=== PATIENT | female | born 1945 | race Caucasian/White ===

== ENCOUNTER 2018-10-25 12:04 | Inpatient (IN) ==
[2018-10-25] MEDS ORDERED: DUONEB (A & A) INH ONE (12:27)
--- NOTE | 2018-10-25 12:40 | EKG Report ---
Test Performed on : 10/25/2018 12:14:07 PM Test Reason : CP Blood Pressure : / mmHG Vent. Rate : 060 BPM Atrial Rate : 060 BPM P-R Int : 180 ms QRS Dur : 068 ms QT Int : 386 ms P-R-T Axes : 066 036 044 degrees QTc Int : 386 ms Sinus rhythm. with premature supraventricular complexes. Low voltage QRS Borderline ECG When compared with ECG of 19-MAR-2017 12:36, premature ventricular complexes. are no longer present premature supraventricular complexes. are now present Unconfirmed Result
[2018-10-25 12:44] LABS: BASO% 0.2 % (0.0-0.8); EOS% 2.4 % (0.0-10.0); HEMATOCRIT 36.7 % (37.0-47.0); HEMOGLOBIN 12.6 g/dL (12.0-16.0); IMM GRAN% 0.8 % (0.0-0.5); LYMPH% 10.8 % (20.5-51.1); MCHC 34.3 g/dL (33-37); MCV 81.6 FL (81-99); MONO% 12.8 % (1.7-9.3); MPV 9.9 FL (7.4-10.4); PLT 271 X1000 (130-400); RDW 13.1 % (11.5-14.5); WBC 12.26 X1000 (4.8-10.8)
[2018-10-25 12:45] LABS: BASO# 0.02 X1000 (0.0-0.2); EOS# 0.29 X1000 (0.0-0.7); LYMPH# 1.32 X1000 (1.2-3.4); MONO# 1.57 X1000 (0.11-0.59); NEUT# 8.96 X1000 (1.4-6.5)
--- NOTE | 2018-10-25 12:51 | Diag Imaging Result Doc PS360 ---
EXAM: CHEST-PORTABLE INDICATION: weak TECHNIQUE: One view COMPARISON: 03/22/2017 FINDINGS: The lungs are grossly clear. There is no discrete pleural fluid collection or pneumothorax. The cardiomediastinal silhouette and central vasculature are grossly unremarkable. IMPRESSION: No evidence of acute pathology by plain radiograph. Electronically signed by Evan Tapia 10/25/2018 12:49 PM
[2018-10-25 13:11] LABS: ALB/GLOB RATIO 1.2; ALBUMIN 3.7 g/dL (3.5-5.0); CALCIUM 9.3 mg/dL (8.8-10.2); CREATININE 2.9 mg/dL (0.5-0.9); POTASSIUM 4.5 mmol/L (3.5-5.1); TOTAL BILIRUBIN 0.68 mg/dL (0.20-1.00); TOTAL PROTEIN 6.8 g/dL (6.3-8.3)
[2018-10-25] MEDS ORDERED: ZOFRAN IV PRN (14:30)
[2018-10-25] MEDS ORDERED: TYLENOL PO PRN (14:30)
[2018-10-25] MEDS ORDERED: NS 1,000 ML IV SCH (14:30)
--- NOTE | 2018-10-25 15:30 | HISTORY AND PHYSICAL ---
PRIMARY CARE PHYSICIAN: Dr. Kathi Bacon CHIEF COMPLAINT: Generalized weakness, fatigue, shortness of breath for the past week and then for the past 2 days, she has had a subjective fever, chills, nausea and vomiting. Denied any abdominal pain, diarrhea. HISTORY OF PRESENT ILLNESS: Her workup in the emergency room showed a sodium of 130, BUN of 58 with a creatinine of 2.9. Baseline creatinine appears to be around 2, so she does have some chronic kidney disease. She states her nausea has resolved since arriving to the ER. Vital signs are stable with a blood pressure on arrival of 177/91. She will be admitted for observation for further evaluation and treatment. PAST MEDICAL HISTORY: Allergic rhinitis, COPD, asthma, chronic kidney disease, hyperlipidemia, hypertension, GERD, morbid obesity, polymyalgia with a history of chronic steroid use. PAST SURGICAL HISTORY: InterStim implant to help reduce the number of urinary and bowel accidents placed in 05/2015, bilateral tubal ligation, back surgery, and a D and C. FAMILY HISTORY: Reviewed and noncontributory. SOCIAL HISTORY: She currently lives with her and is retired. Denies any tobacco, alcohol or illicit drug use. ALLERGIES: Doxycycline, minocycline and sulfa drugs. HOME MEDICATIONS: A current list will need to be obtained, reconciled, reviewed and restarted as appropriate. We will place an order for nursing to update and confirm home medication. DIAGNOSTIC DATA: Laboratory data showed a white blood cell count of 12.26, hemoglobin of 12.6, hematocrit 36.7, platelets 271. Sodium is 130, potassium 4.5, chloride 95, CO2 of 23, BUN is 58, creatinine 2.9, glucose 88. Chest x-ray showed no evidence of acute pathology by plain radiograph. EKG showed sinus rhythm with premature supraventricular complexes at 60. REVIEW OF SYSTEMS: She was positive for a subjective fever, chills, generalized weakness, fatigue, shortness of breath. Denied any chest pain or coughing. She was positive for nausea, vomiting. Denied any abdominal pain, constipation, diarrhea, burning or hurting with urination. PHYSICAL EXAMINATION: VITAL SIGNS: On arrival, she had a temperature of 97.4, pulse 64, respirations 22, blood pressure 177/91, saturating 99% on room air. GENERAL: This is a 73-year-old female who is sitting up in the bed and answers questions appropriately. HEENT: Atraumatic and normocephalic. Normal ENT inspection. Oropharynx and nares are clear. Pupils are equal, round and reactive to light and accommodation. Extraocular movements were intact. NECK: Normal inspection. Normal range of motion. LUNGS: Clear to auscultation bilaterally with equal lung expansion and chest wall movement. HEART: Regular rate and rhythm. No murmurs, rubs or gallops. ABDOMEN: Soft, nontender and nondistended. Bowel sounds are present x4 quadrants. MUSCULOSKELETAL: She has 5/5 strength x4 extremities. NEUROLOGICAL: The cranial nerves II through XII appear grossly intact. ASSESSMENT: 1. Dehydration secondary to nausea and vomiting. 2. Generalized weakness. 3. Hyponatremia. 4. Acute kidney injury on chronic kidney disease stage 3 to 4. 5. Polymyalgia rheumatica 6. Acute viral syndrome PLAN: She will be admitted to the Medical Unit under observation status and placed on telemetry. Healthy heart diet. SCDs for DVT prophylaxis. Normal saline at 125 mL an hour. Zofran 4 mg IV q.4 hours p.r.n. Tylenol 650 mg p.o. q.6 hours p.r.n. Placed on a healthy heart diet. Recheck CBC and BMP in the a.m. Further orders after seen by attending and again will need to update and confirm home medications. Dictated by GUERA Reese for Charli Amaro MD cc: GUERA Reese MD Lindsay E. Smith, MD I agree with most components of history, physical, assessment and plan. A separate addendum has been dictated. [facility] HOSPITALYaquelin
[2018-10-25] MEDS ORDERED: ASTELIN NASAL SPRAY NAS PRN (16:25)
[2018-10-25] MEDS: TESSALON PO SCH (17:36)
--- NOTE | 2018-10-25 18:20 | PROVIDER DOCUMENTATION ---
This chart was entered by Maddie Owens Scribe, acting as scribe for Murphy Chris MD. HPI-General Adult - General Chief Complaint: Weakness Stated Complaint: N/V TIMES 3 DAYS Time Seen by Provider: 10/25/18 12:12 Source: patient Allergies/Adverse Reactions: Patient Allergies Allergy/AdvReac Type Severity Reaction Status Date / Time doxycycline Allergy Unknown Verified 10/25/18 12:27 minocycline Allergy Unknown Verified 10/25/18 12:27 Sulfa (Sulfonamide AdvReac NAUSEA Verified 10/25/18 12:27 Antibiotics) Home Medications: Home Medication List Medication Instructions Recorded Confirmed Last Taken Type Azelastine 137 Mcg Nasal Fowler 1 spray JEANNETTE PRN PRN 03/19/17 03/19/17 Unknown History [Astelin Nasal Fowler] Budesonide [Pulmicort Flexhaler] 180 mcg IH DAILY 03/19/17 03/19/17 Unknown History Calcium Carbonate/Vitamin D3 1 mg PO DAILY 03/19/17 03/19/17 Unknown History [Calcium 1,000 + D3 Caplet] Carvedilol [Coreg] 3.125 mg PO BID 03/19/17 03/19/17 Unknown History Cetirizine HCl [Zyrtec] 10 mg PO DAILY 03/19/17 03/19/17 Unknown History Cyanocobalamin (Vitamin B-12) 1,000 mcg PO DAILY 03/19/17 03/19/17 Unknown History [B-12] Fluticasone 50 Mcg Nasal Fowler 50 mcg .SEE ORDER BID 03/19/17 03/19/17 Unknown History [Flonase] Meloxicam [Mobic] 15 mg PO DAILY 03/19/17 03/19/17 Unknown History Mometasone/Formoterol [Dulera 200 13 gm IH BID 03/19/17 03/19/17 Unknown History Mcg/5 Mcg Inhaler] Montelukast [Singulair] 10 mg PO DAILY 03/19/17 03/19/17 Unknown History Multivit with Iron-Minerals 1 each PO DAILY 03/19/17 03/19/17 Unknown History [Centravites 50 Plus] Hastings-3 Fatty Acids/Fish Oil 1 each PO BID 03/19/17 03/19/17 Unknown History [Hastings 3 1,000 mg Softgel] Albuterol 2.5MG/Ipratrop 0.5MG 3 ml INH Q4H PRN PRN #30 neb 03/23/17 Unknown Rx [Duoneb (A & A)] Benzonatate [Tessalon] 100 mg PO TID #90 capsule 03/23/17 Unknown Rx Carvedilol [Coreg] 6.25 mg PO Q12HR #60 tablet 03/23/17 Unknown Rx Levofloxacin [Levaquin] 500 mg PO DAILY #40 tab 03/23/17 Unknown Rx - History of Present Illness -Gen Adult Nature of Presenting Problems: Patient is a 73 year old female who presents to the ED via EMS with weakness, shortness of breath and fatigue. Patient states having nausea, vomiting, fever and chills 2 days ago. Denies abdominal pain and diarrhea. History of COPD, HTN and polymyalgia. Location of Pain/Injury: reports: none Pain Radiation: reports: no radiation Quality of Pain: reports: none Severity: reports: mild Onset/Duration: reports: gradual Timing: reports: still present Context/Activities at Onset: reports: light activity Associated Symptoms: reports: fatigue, shortness of breath, weakness Similar Symptoms Previously?: Yes Recently seen or treated by another doctor?: Yes Review of Systems - Adult - REVIEW OF SYSTEMS - ADULT Constitutional: reports: see HPI, fatique. denies: chills, fever Eyes: reports: no symptoms reported Ears, Nose, Mouth & Throat: reports: no symptoms reported Cardiovascular: reports: no symptoms reported Respiratory: reports: see HPI, shortness of breath. denies: cough, wheezing Gastrointestinal: reports: no symptoms reported Genitourinary: reports: no symptoms reported Musculoskeletal: reports: see HPI, muscle weakness. denies: back pain, neck pain Integumentary: reports: no symptoms reported Neurological: reports: no symptoms reported Psychiatric: reports: no symptoms reported Endocrine: reports: no symptoms reported Hematologic/Lymphatic: reports: no symptoms reported Allergic/Immunologic: reports: no symptoms reported All Other Systems: Reviewed and Negative Past History - Adult - PAST MEDICAL HISTORY-ADULT Review of Records: reports: Old Records Reviewed, Nursing Assessment Review, Medications Reviewed, Social history reviewed & non-contributory. Major Childhood Illnesses: reports: denies history Cardiovascular: reports: HTN Respiratory: reports: asthma, COPD Gastrointestinal: reports: denies history Obstetrical/Gynecological: reports: denies history Genitourinary: reports: kidney disease Musculoskeletal: reports: denies history Neurological: reports: denies history Psychiatric: reports: denies history Endocrine/Immune: reports: denies history Other Conditions: reports: denies history - PRIOR SURGERIES/PROCEDURES Surgical/Procedure History: reports: reviewed, not pertinent - IMMUNIZATION STATUS Childhood Immunizations: See Nurse Assessment Flu Vaccine: See Nurse Assessment - FAMILY HISTORY Family History: reviewed, not pertinent - SOCIAL HISTORY Smoking: denies Substance Use: denies Living Situation: family Physical Exam-General - PHYSICAL EXAM-ADULT Initial Vital Signs Reviewed: Yes - CONSTITUTIONAL General Appearance: alert, no apparent distress, obese. negative: lethargic, slow to respond - EYES Eyes: PERRL/EOMI, pink conjunctivae. negative: scleral icterus - HEAD, EARS, NOSE, MOUTH & THROAT HENMT: normocephalic/atraumatic, moist mucous membranes, pharynx normal. negative: angioedema, hearing deficit - RESPIRATORY Respiratory: chest non-tender, lungs clear, normal breath sounds. negative: crackles, stridor, wheezing - CARDIOVASCULAR Cardiovascular: normal peripheral pulses, regular rate, rhythm. negative: tachycardia, systolic murmur - GASTROINTESTINAL (ABDOMEN) Abdominal Exam: non tender, soft, abnormal bowel sounds (hyperactive bowel soun ds). negative: guarding, rebound - MUSCULOSKELETAL Extremity: non-tender, normal inspection. negative: deformity, erythema, swelling - SKIN Integumentary: normal color, normal turgor, warm/dry. negative: cyanosis, ecchymosis, erythema, jaundice, pallor - NEUROLOGIC Neurologic: grossly normal. negative: aphasia, facial droop - PSYCHIATRIC Psych/Mental Status: normal mood/affect, oriented x 3. negative: anxious Progress - PLAN OF CARE/RESULTS Progress/Plan/Lab Results: Vital Signs - 8 hr 10/25/18 12:21 Temperature 97.4 F L Pulse Rate 64 Respiratory Rate 22 Blood Pressure 177/91 O2 Sat by Pulse Oximetry 99 Orders Category Date Time Status ED: Orthostatic Vital Signs (E as directed Care 10/25/18 12:27 Ordered Nursing- Obtain EKG ONCE Care 10/25/18 12:27 Ordered CHEST-PORTABLE [RAD] Stat Exams 10/25/18 12:25 Ordered CBC WITH DIFF [HEME] Stat Lab 10/25/18 12:26 Uncollected CMP [COMPREHENSIVE METABOLIC PANEL] [CHEM] Stat Lab 10/25/18 12:26 Uncollected Albuterol 2.5MG/Ipratrop 0.5MG [Duoneb (A & A)] Med 10/25/18 12:27 Once 3 ml INH NOW ONE Aerosol Treatments Routine Oth 10/25/18 12:27 Ordered Aerosol Treatments Stat Oth 10/25/18 12:27 Ordered EKG [EKG] Stat Ther 10/25/18 12:26 Ordered Result Diagrams: 10/25/18 12:34 10/25/18 12:34 - EKG 1 Time of EKG reading by physician:: 12:14 EKG Read and Signed by:: Murphy Chris EKG Interpretation (*Must complete 3 of following elements*): Abnormal Rate: 60 Rhythm: sinus rhythm with premature supraventricular complexes [place]: normal QRS: other (low voltage) [place] Interval: normal Comments: borderline ECG - XRAY 1 XRAY Study: Chest Impression: See EMR Report (Signed EXAM: CHEST-PORTABLE INDICATION: weak TECHNIQUE: One view COMPARISON: 03/22/2017 FINDINGS: The lungs are grossly clear. There is no discrete pleural fluid collection or pneumothorax. The cardiomediastinal silhouette and central vasculature are grossly unremarkable. IMPRESSION: No evidence of acute pathology by plain radiograph. Electronically signed by Evan Tapia 10/25/2018 12:49 PM 10/25/18 1249 Interpreting Physician: Evan Tapia MD Dictated Date/Time: 10/25/18 1248 cc: Murphy Chris MD; Kathi Bacon MD) - CONSULTS/PCP/HOSPITALIST Notification #1 *Consult/PCP/Hospitalist*: GUERA Hong for Hospitalist Time Discussed: 13:28 Reason/Comments: Dr. Chris consulted with Gely about patient. Consult Disposition: Will see in ED, Admit Departure - Departure Date of Disposition Decision: 10/25/18 Time of Disposition Decision: 13:29 DIAGNOSIS: DARNELL (acute kidney injury), Hyponatremia Disposition: ADMITTED INPATIENT 09 Certified Medical Emergency: Emergent Condition: Stable Referrals and Follow-Ups: Kathi Bacno MD [Primary Care Provider] - - Critical Care Note This patient required my direct & personal management of CC.: No Attestation - Physician/ JORGE Attestation The physician spent face to face time with patient:: Yes Advanced Practice Provider documentation review:: Supervising physician onsite and consulted in the evaluation and care of this patient. The physician did have a face to face encounter with the patient. This chart was documented by the indicated scribe, (Maddie Owens Scribe) and accurately reflects the services I performed and decisions made by me, Murphy Chris MD, as attested by the provider's signature.
[2018-10-25 18:29] LABS: HEMOGLOBIN A1C 6.1 % (4.8-6.0)
[2018-10-25 18:56] LABS: C REACTIVE PROT QUANT 123.98 mg/L (0.00-5.00)
[2018-10-25] MEDS: DUONEB (A & A) INH PRN ×2 (20:10→23:15)
[2018-10-25] MEDS: FLONASE NAS SCH (20:48)
[2018-10-25] MEDS: COREG PO SCH (20:48)
[2018-10-25] MEDS: APRESOLINE PO SCH (20:48)
[2018-10-25] MEDS: ZOCOR PO SCH (20:48)
[2018-10-25 21:15] LABS: URINE SOURCE CLEAN CATCH
[2018-10-25 21:20] LABS: BILIRUBIN URINE NEGATIVE (NEGATIVE); BLOOD URINE NEGATIVE (NEGATIVE); COLOR YELLOW; GLUCOSE URINE NEGATIVE (NEGATIVE); KETONE URINE NEGATIVE (NEGATIVE); LEUKOCYTES URINE NEGATIVE (NEGATIVE); NITRITE URINE NEGATIVE (NEGATIVE); PH URINE 6.5; PROTEIN URINE NEGATIVE (NEGATIVE); SP GRAVITY URINE 1.008; TURBIDITY URINE CLEAR (CLEAR); UR EPITHELIAL CELLS <10 /HPF (<10); URINE BACTERIA NEGATIVE /HPF; URINE RBC <10 /HPF (<10); URINE WBC <10 /HPF (<10); UROBILINOGEN URINE NORMAL (NORMAL)
[2018-10-25] MEDS: ULTRAM PO PRN (22:45)
[2018-10-26] MEDS ORDERED: NS 1,000 ML IV SCH (01:45)
[2018-10-26] MEDS: DUONEB (A & A) INH PRN ×6 (03:30→23:20)
[2018-10-26 06:39] LABS: BASO# 0.03 X1000 (0.0-0.2); BASO% 0.2 % (0.0-0.8); EOS# 0.39 X1000 (0.0-0.7); EOS% 2.6 % (0.0-10.0); HEMATOCRIT 38.5 % (37.0-47.0); HEMOGLOBIN 12.8 g/dL (12.0-16.0); IMM GRAN# 0.15 X1000 (0.0-0.04); LYMPH# 1.69 X1000 (1.2-3.4); LYMPH% 11.1 % (20.5-51.1); MCH 27.5 PG (27-31); MCHC 33.2 g/dL (33-37); MCV 82.6 FL (81-99); MONO# 1.31 X1000 (0.11-0.59); MONO% 8.6 % (1.7-9.3); MPV 9.8 FL (7.4-10.4); NEUT% 76.5 % (42.2-75.2); PLT 336 X1000 (130-400); RBC 4.66 XMIL (4.2-5.4); RDW 13.4 % (11.5-14.5); WBC 15.27 X1000 (4.8-10.8)
[2018-10-26 07:20] LABS: CALCIUM 9.2 mg/dL (8.8-10.2); CREATININE 2.5 mg/dL (0.5-0.9); POTASSIUM 4.5 mmol/L (3.5-5.1)
[2018-10-26] MEDS: DULERA 200 MCG/5 MCG INHALER IH SCH ×2 (07:58→19:30)
[2018-10-26] MEDS: FLONASE NAS SCH ×2 (08:31→21:32)
[2018-10-26] MEDS: SINGULAIR PO SCH (08:32)
[2018-10-26] MEDS: OSCAL 500 + D PO SCH (08:32)
[2018-10-26] MEDS: CENTRUM SILVER PO SCH (08:32)
[2018-10-26] MEDS: ZYRTEC PO SCH (08:33)
[2018-10-26] MEDS: TESSALON PO SCH ×3 (08:33→16:48)
[2018-10-26] MEDS: VITAMIN B-12 PO SCH (08:33)
[2018-10-26] MEDS: COREG PO SCH ×2 (08:33→21:32)
[2018-10-26] MEDS: ULTRAM PO PRN (08:33)
[2018-10-26] MEDS: PREVACID SOLUTAB PO SCH (08:33)
[2018-10-26] MEDS: APRESOLINE PO SCH ×3 (08:33→21:32)
--- NOTE | 2018-10-26 09:52 | HISTORY AND PHYSICAL ---
Addendum to History and Physical dictated by nurse practitioner. I agree with most components of the History and Physical, Assessment and Plan. In brief, Ms. Fishman is a 73-year-old lady with past medical history of polymyalgia, bilateral osteoarthritis, chronic bronchitis, chronic kidney disease because of multiple acute pyelonephritis episodes, essential hypertension, chronic GERD, and morbid obesity, who came in with chief complaints of weakness, fatigue, subjective feelings of fever, chills, nausea, and episode of about 5 to 6 vomiting since about 2 days duration. The patient had just finished a course of prednisone dose pack yesterday. In the emergency room, she was found to have acute kidney injury on chronic kidney disease, hyponatremia, and hypochloremia. Considering her presyncope episode, hospitalist team was consulted for further management. SUBJECTIVE: At the time of my evaluation, the patient appears very weak and in distress. She is complaining of mild generalized fatigue. The patient's family is at bedside. PHYSICAL EXAMINATION: VITALS: Temperature 97.8, pulse 65, respiratory rate 16, blood pressure 150/98 saturating 95% on room air. GENERAL: Morbidly obese in mild distress because of generalized body ache. HEENT: he has facial thrushing. Tonsillar enlargement without any exudate. Pharyngeal erythema. NECK: No cervical lymphadenopathy. LUNGS: Air entry bilaterally equal. No wheezing, rhonchi or crackles. HEART: S1 and S2 normal. No murmur, rub or gallop. ABDOMEN: Soft. Obese. Nontender. EXTREMITIES: She has bilateral knee tenderness. No lower extremity edema. NEUROLOGIC: She is alert and oriented x3. She is able to raise both upper and lower extremities above ground level. LABORATORY: Labs suggestive of mild leukocytosis of 12,000. Normal hemoglobin and normal platelet count. She has hyponatremia and hypochloremia. Elevated BUN and creatinine suggestive of acute kidney injury on chronic kidney disease stage 4. Her hemoglobin A1C is in acceptable range. Her creatinine kinase, TSH and cortisol are in acceptable range. Her sed rate and C- reactive protein are pending. Troponin's are negative. Chest x-ray is suggestive of chronic bronchitis with bronchial wall thickening. ASSESSMENT AND PLAN: 1. Generalized body aches and tiredness likely viral syndrome. 2. Suspected viral gastroenteritis 3. Suspected polymyalgia rheumatica flare up 4. DARNELL on CKD stage 4 with hyponatremia, hypochloremia 5. Chronic bronchitis without history of tobacco use and asthma 6. Physical deconditioning 7. Chronic pain syndrome. PLAN: - IV fluid resuscitation - Monitor BMP - Follow up TSH, cortisol, ESR, CRP - ECHO report requested from her PCP's office done 2 weeks ago - PT with future rehab needs. - Urinalysis to rule out UTI cc: Charli Amaro MD MTDD
[2018-10-26] MEDS: PREDNISONE PO SCH (17:44)
--- NOTE | 2018-10-26 21:04 | PROGRESS NOTE ---
DATE: 10/26/2018 INTERVAL HISTORY: Patient was resuscitated with intravenous fluids. Her TSH, troponins, and cortisols were within acceptable range. The records from her primary care doctor's office are not in the system yet. SUBJECTIVE: Patient is feeling much better. She still complains of some stiffness around her shoulder, upper extremity muscles, and knee pain, but she is feeling much better. She is eating better. She had a normal bowel movement overnight. She is not very nauseous. We discussed about her exam findings and labs, and I answered all of their questions. Family is at bedside. VITAL SIGNS: Temperature 98.7 degrees, pulse 87, respiratory rate 16, blood pressure 148/83, saturating 95% on room air. PHYSICAL EXAMINATION: General: Morbidly obese, not in any acute distress. HEENT: Oral cavity appears moist. Tonsillar enlargement without any exudates or cervical lymphadenopathy. No facial flushing. No pallor, cyanosis, clubbing, or icterus. Lungs: Air entry bilaterally equal. No wheeze, rhonchi, or crackles. Cardiovascular: S1, S2 normal. No murmur or gallop. Abdomen: Obese, soft, nontender. Extremities: No lower extremity edema. Neurologic: She is alert and oriented x3. LABS: Suggestive of leukocytosis. Normal hemoglobin, platelet count. She does have improvement in her hyponatremia and hypochloremia, and improvement in her BUN and creatinine after intravenous fluid resuscitation, that she received a total of 2 L. MICROBIOLOGY: No data. Her TSH, cortisols were within normal limits. Her C- reactive protein and ESR were extremely elevated. She has a urinalysis within acceptable range. IMAGING: No new imaging today except chest x-ray which had suggested no evidence of acute pathology. ASSESSMENT AND PLAN: 1. Acute Viral syndrome, likely in the setting of viral gastroenteritis, leading to generalized body aches, tiredness, and physical deconditioning, status post intravenous fluid resuscitation. She is feeling significantly better. Continue heart healthy diet and physical therapy. Social work rehabilitation consult has been placed. 2. Polymyalgia rheumatica flare-up, based on her symptoms and elevated inflammatory markers. Start patient on prednisone and adjust the dose according to her symptoms of gastritis, nausea, and hypertension. 3. Acute kidney injury on chronic kidney disease stage 4, improving after intravenous fluid resuscitation. She is now eating by mouth adequately. Follow up with [facility] tomorrow. 4. Essential hypertension, currently in acceptable range. Continue home carvedilol and hydralazine. I am holding angiotensin receptor blockers considering her acute kidney injury. Adjust the dose according to her response. 5. History of chronic bronchitis and asthma. Continue albuterol/ipratropium nebulization, cetirizine, fluticasone nasal spray, mometasone formoterol, and montelukast. 6. Others. Continue simvastatin for hyperlipidemia, tramadol for chronic pain. 7. Disposition. Patient appears to be improving. If she continues to feel better, my plan is to discharge her in the next 24 to 48 hours to rehabilitation. Social work rehab consult has been placed. Plan discussed with the patient and her .All questions have been answered. cc: Charli Amaro MD MTDD
[2018-10-26] MEDS: ZOCOR PO SCH (21:32)
[2018-10-27] MEDS: DUONEB (A & A) INH PRN ×5 (03:35→23:25)
[2018-10-27] MEDS: ULTRAM PO SCH ×4 (05:11→22:06)
[2018-10-27 06:33] LABS: EOS# 0.03 X1000 (0.0-0.7); EOS% 0.3 % (0.0-10.0); HEMATOCRIT 35.1 % (37.0-47.0); HEMOGLOBIN 11.6 g/dL (12.0-16.0); IMM GRAN# 0.09 X1000 (0.0-0.04); IMM GRAN% 0.9 % (0.0-0.5); LYMPH# 0.72 X1000 (1.2-3.4); LYMPH% 7.4 % (20.5-51.1); MCH 27.3 PG (27-31); MCV 82.6 FL (81-99); MONO# 0.58 X1000 (0.11-0.59); MPV 9.9 FL (7.4-10.4); NEUT# 8.31 X1000 (1.4-6.5); NEUT% 85.4 % (42.2-75.2); PLT 215 X1000 (130-400); RBC 4.25 XMIL (4.2-5.4); RDW 13.2 % (11.5-14.5); WBC 9.73 X1000 (4.8-10.8)
[2018-10-27 06:49] LABS: CALCIUM 9.2 mg/dL (8.8-10.2); CREATININE 2.5 mg/dL (0.5-0.9); POTASSIUM 4.6 mmol/L (3.5-5.1)
[2018-10-27 07:21] LABS: BANDS 2 % (0-1); MONO 4 % (1-9); SEGS 94 % (42-75)
[2018-10-27] MEDS: DULERA 200 MCG/5 MCG INHALER IH SCH ×2 (07:44→19:25)
[2018-10-27] MEDS: COREG PO SCH ×2 (09:32→22:00)
[2018-10-27] MEDS: FLONASE NAS SCH ×2 (09:32→22:04)
[2018-10-27] MEDS: APRESOLINE PO SCH ×3 (09:32→22:00)
[2018-10-27] MEDS: CENTRUM SILVER PO SCH (09:32)
[2018-10-27] MEDS: TESSALON PO SCH ×3 (09:33→17:24)
[2018-10-27] MEDS: PREVACID SOLUTAB PO SCH (09:33)
[2018-10-27] MEDS: OSCAL 500 + D PO SCH (09:33)
[2018-10-27] MEDS: SINGULAIR PO SCH (09:33)
[2018-10-27] MEDS: PREDNISONE PO SCH (09:33)
[2018-10-27] MEDS: VITAMIN B-12 PO SCH (09:34)
[2018-10-27] MEDS: ZYRTEC PO SCH (09:34)
--- NOTE | 2018-10-27 17:24 | PROGRESS NOTE ---
DATE: 10/27/2018 SUBJECTIVE: This morning, Ms. Fishman refers to be feeling a little better. She denies any more nauseation or vomiting. She is tolerating her diet. was at the bedside at the time of the encounter. OBJECTIVE: Vital signs: Blood pressure is 130/69, pulse 67, respirations 24, temperature is 98.3 degrees. Patient is saturating 96%. General: Ms. Fishman is a 73-year-old female. She was sitting up in the chair, no distress. HEENT: Mucosa is pink and moist. Anicteric. Acyanotic. Neck: Supple. Chest: Good air entry bilaterally. No crepitations. No rhonchi. Cardiovascular: Regular rate and rhythm. Abdomen: Soft. Extremities: No pedal edema. 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 LABORATORY DATA: WBC is down to 9.72, hemoglobin is 11.6, platelet count of 215,000. Chemistry is also reviewed. Sodium is 133, BUN is 47, creatinine is 2.7 which seems to be chronic. No microbiology data. ASSESSMENT AND PLAN: 1. Nausea and vomiting on presentation secondary to viral gastroenteritis, improved. 2. History of polymyalgia rheumatica with possible flare, improved on steroids. 3. Acute on chronic kidney disease stage 4. Back to baseline. 4. Hypertension. Will continue with home medications. 5. History of bronchitis and asthma. 6. Dyslipidemia. 7. Disposition. We are still pending social work arrangement for rehab placement. cc: Jordan Strange MD
[2018-10-27] MEDS: ZOCOR PO SCH (22:00)
[2018-10-28] MEDS: ULTRAM PO SCH (05:21)
[2018-10-28 06:41] LABS: ALBUMIN 3.6 g/dL (3.5-5.0); CALCIUM 9.3 mg/dL (8.8-10.2); CREATININE 2.1 mg/dL (0.5-0.9); POTASSIUM 4.2 mmol/L (3.5-5.1)
[2018-10-28] MEDS: DULERA 200 MCG/5 MCG INHALER IH SCH ×2 (07:55→19:25)
[2018-10-28] MEDS: DUONEB (A & A) INH PRN ×3 (07:56→23:20)
[2018-10-28] MEDS ORDERED: NORCO-5 PO PRN (08:41)
[2018-10-28] MEDS: ZYRTEC PO SCH (08:55)
[2018-10-28] MEDS: PREVACID SOLUTAB PO SCH (08:56)
[2018-10-28] MEDS: COREG PO SCH ×2 (08:56→20:35)
[2018-10-28] MEDS: TESSALON PO SCH ×3 (08:56→16:23)
[2018-10-28] MEDS: CENTRUM SILVER PO SCH (08:56)
[2018-10-28] MEDS: APRESOLINE PO SCH ×3 (08:56→20:35)
[2018-10-28] MEDS: PREDNISONE PO SCH (08:56)
[2018-10-28] MEDS: FLONASE NAS SCH ×2 (08:56→20:36)
[2018-10-28] MEDS: OSCAL 500 + D PO SCH (08:56)
[2018-10-28] MEDS: SINGULAIR PO SCH (08:56)
[2018-10-28] MEDS: VITAMIN B-12 PO SCH (08:56)
[2018-10-28] MEDS: FLEXERIL PO SCH ×3 (11:34→23:04)
--- NOTE | 2018-10-28 12:30 | PROGRESS NOTE ---
DATE: 10/28/2018 SUBJECTIVE: This morning Ms. Fishman refers to be feeling fairly okay, and did have some mild discomfort of pain and spasms around her neck, but otherwise no new complaints. OBJECTIVE: Vital signs: Blood pressure 159/71, pulse of 70, respirations 16, and temperature 98.1 degrees. The patient is saturating 99% on room air. General: Ms. Fishman is a 73-year-old female. She is in bed. She is not in any distress. Mucosa is pink and moist. Anicteric. Acyanotic. Neck: Supple. Chest: Clear to auscultation. No crepitations. No rhonchi. Cardiovascular: Regular rate and rhythm. Abdomen: Soft. Nontender. Bowel sounds present. 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 Follows basic commands. LABORATORY DATA: Creatinine is down to 2.1. BUN is also 46. Sodium is 130. Rest of chemistry is unremarkable. CURRENT MEDICATIONS: Have all been reviewed. No changes. ASSESSMENT: 1. Nausea and vomiting on presentation secondary to viral gastroenteritis resolved. 2. History of polymyalgia rheumatica with possible flare. This has improved on steroids. 3. Acute on chronic kidney disease stage 4. Creatinine is fairly at baseline. 4. Hypertension controlled. 5. History of bronchitis and asthma stable. 6. Dyslipidemia controlled. 7. Generalized weakness and deconditioning. Physical Therapy is on board, and there is also a plan to transition Ms. Fishman to rehab. 8. Musculoskeletal pain around the shoulder girdle. The patient is currently on pain medication. We will also add Flexeril as a muscle relaxant. 9. Disposition is pending on rehab placement. cc: Jordan Strange MD
[2018-10-28] MEDS: ZOCOR PO SCH (20:35)
[2018-10-29] MEDS: FLEXERIL PO SCH ×2 (05:59→13:44)
[2018-10-29 06:46] LABS: ALBUMIN 3.4 g/dL (3.5-5.0); CALCIUM 9.4 mg/dL (8.8-10.2); CREATININE 2.2 mg/dL (0.5-0.9); PHOSPHORUS 3.9 mg/dL (2.7-4.5); POTASSIUM 4.6 mmol/L (3.5-5.1)
[2018-10-29] MEDS: DULERA 200 MCG/5 MCG INHALER IH SCH ×2 (07:34→19:30)
[2018-10-29] MEDS: DUONEB (A & A) INH PRN ×5 (07:34→23:30)
[2018-10-29] MEDS: CENTRUM SILVER PO SCH (09:40)
[2018-10-29] MEDS: VITAMIN B-12 PO SCH (09:40)
[2018-10-29] MEDS: OSCAL 500 + D PO SCH (09:40)
[2018-10-29] MEDS: TESSALON PO SCH ×3 (09:40→17:01)
[2018-10-29] MEDS: COREG PO SCH ×2 (09:40→23:11)
[2018-10-29] MEDS: FLONASE NAS SCH ×2 (09:40→23:10)
[2018-10-29] MEDS: ZYRTEC PO SCH (09:40)
[2018-10-29] MEDS: SINGULAIR PO SCH (09:40)
[2018-10-29] MEDS: APRESOLINE PO SCH ×3 (09:40→23:11)
[2018-10-29] MEDS: PREDNISONE PO SCH (09:40)
[2018-10-29] MEDS: PREVACID SOLUTAB PO SCH (09:41)
[2018-10-29] MEDS ORDERED: DIFLUCAN PO ONE (10:45)
--- NOTE | 2018-10-29 14:53 | PROGRESS NOTE ---
DATE: 10/29/2018 SUBJECTIVE: This morning, Ms. Fishman refers to be doing a whole lot better. Denies any complaints. She did report that she has been having some itching in her private part, which normally happens when she is started on steroids. She gets frequent yeast infection, and she has been on Diflucan on a weekly basis from her primary care doctor. OBJECTIVELY: Vital Signs: Blood pressure is 116/47, pulse of 60, respirations 19, temperature 97.7 degrees. The patient is saturating 99%. General: Ms. Fishman is a 73-year-old female. She is in bed, in no distress. Mucosa is pink and moist. Anicteric. Acyanotic. Neck: Supple. No JVD. No carotid bruit. Respiratory: There is good air entry bilaterally. No crepitations. No rhonchi. Cardiovascular: Regular rate and rhythm. No murmurs, no rubs, no gallops. Gastrointestinal: The abdomen is soft, nontender. Bowel sounds present. There is no hepatosplenomegaly. Extremities: No pedal edema. Distal pulses are present. Genitourinary: Not examined. Central Nervous System: The patient is awake, alert, oriented and follows basic commands. LABORATORY DATA: Chemistries reviewed are pretty much the same. No changes from previous labs. ASSESSMENT AND PLAN: 1. Nausea and vomiting on presentation secondary to viral gastroenteritis, resolved. 2. History of polymyalgia rheumatica with possible flare on presentation, improved with steroid use. 3. Acute on chronic kidney disease stage 4. Creatinine is at baseline. 4. Hypertension, controlled. 5. History of bronchitis and asthma, stable. 6. Dyslipidemia, controlled. 7. Musculoskeletal pain around the shoulder girdle, resolved. 8. Generalized weakness and deconditioning. Physical therapy is on board. 9. Suspected Tashia vaginalis from steroids. The patient will be started on her home regimen with Diflucan. 10. Disposition is pending rehabilitation placement. cc: Jordan Strange MD
[2018-10-29] MEDS: ZOCOR PO SCH (23:11)
[2018-10-30] MEDS: FLEXERIL PO SCH ×4 (00:52→22:43)
[2018-10-30] MEDS: DULERA 200 MCG/5 MCG INHALER IH SCH ×2 (07:39→19:25)
[2018-10-30] MEDS: DUONEB (A & A) INH PRN ×3 (07:39→19:25)
[2018-10-30] MEDS: SINGULAIR PO SCH (08:26)
[2018-10-30] MEDS: VITAMIN B-12 PO SCH (08:26)
[2018-10-30] MEDS: CENTRUM SILVER PO SCH (08:26)
[2018-10-30] MEDS: FLONASE NAS SCH ×2 (08:27→22:43)
[2018-10-30] MEDS: TESSALON PO SCH ×3 (08:27→16:16)
[2018-10-30] MEDS: COREG PO SCH ×2 (08:27→22:42)
[2018-10-30] MEDS: PREDNISONE PO SCH (08:27)
[2018-10-30] MEDS: APRESOLINE PO SCH ×3 (08:27→22:42)
[2018-10-30] MEDS: PREVACID SOLUTAB PO SCH (08:27)
[2018-10-30] MEDS: OSCAL 500 + D PO SCH (08:27)
[2018-10-30] MEDS: ZYRTEC PO SCH (08:27)
--- NOTE | 2018-10-30 11:59 | PROGRESS NOTE ---
DATE: 10/30/2018 SUBJECTIVE: This morning, Mr. Fishman referred to be feeling a little loopy and weak. She said she woke up very delightful and after she coughed multiple times, she just felt exhausted. OBJECTIVE: Vital Signs: Blood pressure is 131/65, pulse of 65, respirations are 16, temperature 97.8 degrees, patient is saturating 97% on room air. General Examination: Ms. Fishman is a 73- year-old, female. She is in bed. No distress. HEENT: Mucosa is pink and moist. Anicteric. Acyanotic. Neck: Supple. Chest: Clear to auscultation. No crepitations. No rhonchi. Cardiovascular: Regular rate and rhythm. There are no murmurs, no rubs, no gallops. GI: Abdomen is soft, nontender. Bowel sounds present. There is no hepatosplenomegaly. Extremities: No pedal edema. Distal pulses are present. 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 There is no focal neurological deficit. Laboratory Data: None for today. Medications: Have all been reviewed. ASSESSMENT: 1. Viral gastroenteritis on presentation, resolved. 2. History of polymyalgia rheumatica with flare on presentation, improved. 3. Acute on chronic kidney disease stage 4. Creatinine is baseline. We will repeat renal function tests for tomorrow. 4. Hypertension, controlled. 5. Dyslipidemia. 6. Generalized weakness and deconditioning. Physical therapy is on board. 7. 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 Patient is on a Diflucan regimen. 8. Musculoskeletal pain, improved. PLAN: In general, Ms. Fishman seems to be doing okay. We are still pending a placement for her tomorrow. Her physical therapy report yesterday seems to suggest the patient was walking about 150, which is very encouraging. We are going to continue to encourage her to participate. cc: Jordan Strange MD
[2018-10-30] MEDS: ZOCOR PO SCH (22:42)
[2018-10-31] MEDS: FLEXERIL PO SCH ×3 (07:01→21:44)
[2018-10-31 07:12] LABS: ALBUMIN 3.6 g/dL (3.5-5.0); CALCIUM 9.4 mg/dL (8.8-10.2); CREATININE 2.1 mg/dL (0.5-0.9); PHOSPHORUS 3.8 mg/dL (2.7-4.5); POTASSIUM 4.6 mmol/L (3.5-5.1)
[2018-10-31] MEDS: DUONEB (A & A) INH PRN ×2 (07:50→15:21)
[2018-10-31] MEDS: DULERA 200 MCG/5 MCG INHALER IH SCH ×2 (07:51→19:55)
[2018-10-31] MEDS: PREVACID SOLUTAB PO SCH (10:00)
[2018-10-31] MEDS: TESSALON PO SCH ×3 (10:00→18:39)
[2018-10-31] MEDS: FLONASE NAS SCH ×2 (10:00→21:45)
[2018-10-31] MEDS: VITAMIN B-12 PO SCH (10:01)
[2018-10-31] MEDS: COREG PO SCH ×2 (10:01→21:42)
[2018-10-31] MEDS: OSCAL 500 + D PO SCH (10:01)
[2018-10-31] MEDS: CENTRUM SILVER PO SCH (10:01)
[2018-10-31] MEDS: ZYRTEC PO SCH (10:02)
[2018-10-31] MEDS: PREDNISONE PO SCH (10:02)
[2018-10-31] MEDS: SINGULAIR PO SCH (10:02)
[2018-10-31] MEDS: APRESOLINE PO SCH ×3 (10:02→21:42)
--- NOTE | 2018-10-31 10:30 | PROGRESS NOTE ---
DATE: 10/31/2018 SUBJECTIVE: This morning, Ms. Fishman refers to be feeling a lot better. No more nausea and vomiting, and no abdominal pain. She has been tolerating her meals. OBJECTIVE: Vital Signs: Blood pressure is 148/70, pulse of 73, respirations 18, temperature 97.6 degrees. General: Ms. Fishman is a 73-year-old female. She is in bed. No distress. HEENT: Mucosa is pink and moist. Anicteric. Acyanotic. Neck: Supple. Chest: Clear to auscultation. No crepitations. No rhonchi. Cardiovascular: Regular rate and rhythm. No murmurs, no rubs, no gallops. GI: Abdomen is soft, nontender. Bowel sounds present. No hepatosplenomegaly. Extremities: No pedal edema. Distal pulses are present. 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 There is no focal neurological deficit. IMAGING AND LABORATORY DATA: Chemistry is reviewed and is all consistent with renal failure. Potassium and acid base normal. No imaging studies for this morning. ASSESSMENT: 1. Viral gastroenteritis on presentation, resolved. 2. History of polymyalgia rheumatica. The patient is on steroids. 3. Acute on chronic kidney disease stage 4. Creatinine is at baseline. The patient follows up with Dr. Guallpa. We will recommend that she follows up with Nephrology. 4. Hypertension, controlled. 5. Dyslipidemia, stable. 6. Musculoskeletal pain, improved. 7. Generalized weakness and deconditioning. Physical Therapy is on board, and there is a recommendation for the patient to go to rehab. PLAN: In general, Ms. Fishman is fairly stable. She feels stronger this morning, and not loopy as yesterday. Her chemistry is fairly stable, and her vitals are also stable. We are pending final arrangement from Social Work for rehab placement. I understand there will be a bed for Ms. Fishman at [facility] tomorrow. cc: Jordan Strange MD
[2018-10-31] MEDS: ZOCOR PO SCH (21:42)
[2018-11-01] MEDS: DULERA 200 MCG/5 MCG INHALER IH SCH (07:35)
[2018-11-01] MEDS: DUONEB (A & A) INH PRN ×2 (07:35→11:24)
[2018-11-01] MEDS: FLEXERIL PO SCH (08:17)
[2018-11-01] MEDS: CENTRUM SILVER PO SCH (08:22)
[2018-11-01] MEDS: ZYRTEC PO SCH (08:22)
[2018-11-01] MEDS: SINGULAIR PO SCH (08:22)
[2018-11-01] MEDS: TESSALON PO SCH (08:22)
[2018-11-01] MEDS: PREVACID SOLUTAB PO SCH (08:22)
[2018-11-01] MEDS: APRESOLINE PO SCH (08:22)
[2018-11-01] MEDS: FLONASE NAS SCH (08:22)
[2018-11-01] MEDS: OSCAL 500 + D PO SCH (08:22)
[2018-11-01] MEDS: COREG PO SCH (08:22)
[2018-11-01] MEDS: VITAMIN B-12 PO SCH (08:22)
[2018-11-01] MEDS: PREDNISONE PO SCH (08:22)
--- NOTE | 2018-11-01 10:56 | DISCHARGE SUMMARY ---
ADMISSION DATE: 10/25/2018 DISCHARGE DATE: 11/01/2018 DISPOSITION: [facility]. FOLLOW-UP: 1. Dr. Kathi Bacon. 2. Dr. Miki Medina. CONSULTATION DURING THIS ADMISSION: None. IMAGING STUDIES OF SIGNIFICANCE: A chest x-ray showed no evidence of acute pathology. ADMISSION DIAGNOSES: 1. Dehydration secondary to nausea and vomiting. 2. Generalized weakness. 3. Hyponatremia. 4. Acute on chronic kidney disease. 5. Polymyalgia. 6. Acute viral syndrome. DIAGNOSES AT THE TIME OF DISCHARGE: 1. Nausea, vomiting and diarrhea on presentation secondary to viral gastroenteritis, resolved. 2. Clinical volume depletion, improved. 3. Acute on chronic kidney disease stage IV. The patient follows up with Dr. Medina. Creatinine has returned to baseline. 4. Hypertension, controlled. 5. Dyslipidemia. 6. History of polymyalgia rheumatica. The patient is currently on steroids. Generalized body pains have improved. 7. Generalized weakness and deconditioning. Physical therapy was on board. DISCHARGE MEDICATIONS: 1. Budesonide inhaler. 2. Carvedilol 3.125 b.i.d. 3. Fluticasone. 4. Cyanocobalamin. 5. Hydralazine 25 mg p.o. 3 times per day. 6. Lansoprazole 50 mg p.o. daily. 7. Tramadol 50 mg 3 times per day. 8. Prednisone 20 mg p.o. daily. MEDICATIONS THAT HAVE BEEN DISCONTINUED: 1. Telmisartan. 2. Hydrochlorothiazide. 3. Meloxicam. The patient advised to follow up with primary care doctor. Repeat the renal function before these medications are restarted. PRESENTING COMPLAINT: Generalized weakness, fatigue, nausea, vomiting. HISTORY OF PRESENTING COMPLAINT: Ms. Fishman is a 73-year-old female, who is known to have polymyalgia rheumatica, COPD, asthma, kidney disease, came to the emergency department because of generalized weakness, has been having some nausea and vomiting and diarrhea a couple days prior. I understand there is a grandson who also had similar complaints at the house 2 to 3 days before the patient presented. HOSPITAL COURSE: Ms. Fishman was admitted to the medical floor, was found to be remarkably volume depleted, so was volume resuscitated. The GI symptoms were managed symptomatically, which got better. Her hydration status also got improved. Ms. Fishman continued to gain strength during the hospital course. She was able to participate with physical therapy. Her lab works in terms of white cell count continues to improve. Chemistry: Creatinine which was 2.9 on admission, was down to 2.1 at the time of discharge, which seems to have been the patient's new baseline. This morning Ms. Fishman refers to be feeling a whole lot better. She has been able to do multiple sessions of physical therapy, including yesterday she was able to do 250 feet with minimum assistance. This morning she feels stronger. She has been tolerating her diet. She has been having regular bowel movement. We think she is stable for discharge. All the discharge instructions have been discussed with her and with her , who was at the bedside at the time of the encounter. The did have some reservation whether he really wanted the to go to rehab. However, I think Ms. Fishman is still weak and I think she would get the maximum benefit if she goes into an inpatient rehab. There have been arrangements for her to go to [facility]. All the discharge instructions have been discussed with both of them, and they voiced understanding. TIME SPENT FOR DISCHARGE: 36 minutes. cc: MD Kathi Zarco MD Reginald D. Gladish, MD
[2018-11-01 11:59] VITALS: BP 136/64
== END 2018-11-01 13:06 | DRG 641 ==
LOC: SUPCPDRO → 4N 12:04 → ED 12:04 → OBSVTOIN 14:11 → SUATTDRO 14:11
PROVIDERS: ATTEND Internal Medicine
CPT/HCPCS: 71010; 71045; 80048; 80053; 80069; 81001; 82533; 82550; 83036; 83735; 84443; 84484; 85025; 85651; 86140; 93005; 94640; 94761; 94799; 97116; 97162; 97530; 99285; A9270; J7030; J7506; J7512